=== PATIENT | female | born 1935 | race Caucasian/White ===

== ENCOUNTER 2016-07-28 18:30 | Inpatient (IN) | payer OTHER ==
[~2016-07-28] VITALS: Ht 162.6 cm; Wt 90.7 kg
[2016-07-28 18:50] LABS: HEMOGLOBIN 12.9 gm/dl (12.3-15.3); RED BLOOD COUNT 4.73 M/UL (4.00-5.10); WHITE BLOOD COUNT 8.1 K/UL (4.5-11.0)
[2016-07-29 07:48] LABS: HEMOGLOBIN 11.4 gm/dl (12.3-15.3); WHITE BLOOD COUNT 7.8 K/UL (4.5-11.0)
[2016-07-29 07:50] LABS: RED BLOOD COUNT 4.13 M/UL (4.00-5.10)
[2016-07-29] MEDS ORDERED: ELAVIL 25 MG TA25 MG PO (18:57)
[2016-07-29] MEDS ORDERED: ALPRAZOLAM0.5 MG PO (18:57)
[2016-07-29] MEDS ORDERED: LASIX40 MG PO (18:57)
[2016-07-29] MEDS ORDERED: SYNTHROID75 MCG PO (18:58)
[2016-07-29] MEDS ORDERED: DIABETA 5 MG TAB5 MG PO (18:58)
[2016-07-29] MEDS ORDERED: NITROGLYCERIN2.5 M1 PO (18:58)
[2016-07-29] MEDS ORDERED: MULTIVITAMINS1 EAC2 PO (18:59)
[2016-07-29] MEDS ORDERED: PROTONIX40 MG PO (18:59)
[2016-07-29] MEDS ORDERED: LOPRESSOR 25 MG25 MG PO (18:59)
[2016-07-29] MEDS ORDERED: CALCIUM 500 +1 EAC2 PO (19:00)
[2016-07-29] MEDS ORDERED: ASPIRIN81 MG PO (19:00)
[2016-07-29] MEDS ORDERED: PLAVIX 75 MG TA75 MG PO (19:01)
[2016-07-29] MEDS ORDERED: ANTIVERT 25MG T25 MG PO (19:01)
[2016-07-29] MEDS ORDERED: FERROUS SULFAT325 MG PO (19:01)
[2016-07-29] MEDS ORDERED: ZOCOR40 MG PO (19:01)
[2016-07-29] MEDS ORDERED: ARICEPT10 MG PO (19:01)
[2016-07-29] MEDS ORDERED: LEVEMIR100 UNIT/1 SQ (19:02)
[2016-07-29] MEDS ORDERED: CELEXA10 MG PO (19:02)
[2016-07-30 06:11] LABS: HEMOGLOBIN 10.4 gm/dl (12.3-15.3); RED BLOOD COUNT 3.87 M/UL (4.00-5.10); WHITE BLOOD COUNT 7.9 K/UL (4.5-11.0)
[2016-07-31 05:35] LABS: HEMOGLOBIN 9.4 gm/dl (12.3-15.3); RED BLOOD COUNT 3.46 M/UL (4.00-5.10); WHITE BLOOD COUNT 6.1 K/UL (4.5-11.0)
[2016-08-01 05:55] LABS: HEMOGLOBIN 10.7 gm/dl (12.3-15.3)
[2016-08-01 05:59] LABS: RED BLOOD COUNT 3.9 M/UL (4.00-5.10); WHITE BLOOD COUNT 7.9 K/UL (4.5-11.0)
[2016-08-02 05:38] LABS: HEMOGLOBIN 9.2 gm/dl (12.3-15.3)
[2016-08-02 05:40] LABS: RED BLOOD COUNT 3.4 M/UL (4.00-5.10)
== END 2016-08-02 18:20 | DRG 493 ==
LOC: ER1 18:30 → ZEROF 21:00 → M/S 21:00
PROVIDERS: Emergency Medicine; Family Medicine; Orthopaedic Surgery; ADMIT Family Medicine
PROC: 0QSJ35Z Reposition Right Fibula with External Fixation Device, Percutaneous Approach (ICD-10-PCS; principal; 2016-07-30 12:30)
DX: S82.851A Displaced trimalleolar fracture of right lower leg, initial encounter for closed fracture (principal); S42.292A Other displaced fracture of upper end of left humerus, initial encounter for closed fracture; N17.9 Acute kidney failure, unspecified; N39.0 Urinary tract infection, site not specified; D62 Acute posthemorrhagic anemia; B96.20 Unspecified Escherichia coli [E. coli] as the cause of diseases classified elsewhere; K59.00 Constipation, unspecified; J45.909 Unspecified asthma, uncomplicated; I48.91 Unspecified atrial fibrillation; I25.10 Atherosclerotic heart disease of native coronary artery without angina pectoris; Z95.1 Presence of aortocoronary bypass graft; I12.9 Hypertensive chronic kidney disease with stage 1 through stage 4 chronic kidney disease, or unspecified chronic kidney disease; E78.5 Hyperlipidemia, unspecified; I48.2 Chronic atrial fibrillation; Z86.73 Personal history of transient ischemic attack (TIA), and cerebral infarction without residual deficits; E11.22 Type 2 diabetes mellitus with diabetic chronic kidney disease; N18.3 Chronic kidney disease, stage 3 (moderate); F03.90 Unspecified dementia, unspecified severity, without behavioral disturbance, psychotic disturbance, mood disturbance, and anxiety; K21.9 Gastro-esophageal reflux disease without esophagitis; F41.9 Anxiety disorder, unspecified; F32.9 Major depressive disorder, single episode, unspecified; E66.9 Obesity, unspecified; Z68.35 Body mass index [BMI] 35.0-35.9, adult; Z96.641 Presence of right artificial hip joint; Z98.84 Bariatric surgery status; Z82.49 Family history of ischemic heart disease and other diseases of the circulatory system; Z83.3 Family history of diabetes mellitus; Z87.891 Personal history of nicotine dependence; Z88.5 Allergy status to narcotic agent; Z79.899 Other long term (current) drug therapy; Z79.84 Long term (current) use of oral hypoglycemic drugs; Z79.82 Long term (current) use of aspirin; Z79.02 Long term (current) use of antithrombotics/antiplatelets; E03.9 Hypothyroidism, unspecified
CPT/HCPCS: 36415; 71010; 73030; 73560; 73590; 73600; 76000; 80048; 80053; 81001; 82962; 85025; 85027; 85610; 85730; 87077; 87086; 87186; 93005; 94640; 94664; 94760; 94770; 96374; 96375; 97110; 97530; 99291; C1713; J0690; J1650; J1815; J1817; J2270; J2370; J2405; J3010; J7030; J7040; J7120; P9045

== ENCOUNTER 2016-08-10 10:40 | Day surgery (SDC) | payer OTHER ==
[~2016-08-10] VITALS: Ht 162.6 cm; Wt 96.2 kg
[~2016-08-10 10:40] MED LIST: ALPRAZOLAM0.5 MG PO; ANTIVERT 25MG T25 MG PO; ARICEPT10 MG PO; ASPIRIN81 MG PO; CALCIUM 500 +1 EAC2 PO; CELEXA10 MG PO; DIABETA 5 MG TAB5 MG PO; ELAVIL 25 MG TA25 MG PO; FERROUS SULFAT325 MG PO; LASIX40 MG PO; LEVEMIR100 UNIT/1 SQ; LOPRESSOR 25 MG25 MG PO; MULTIVITAMINS1 EAC2 PO; NITROGLYCERIN2.5 M1 PO; PLAVIX 75 MG TA75 MG PO; PROTONIX40 MG PO; SYNTHROID75 MCG PO; ZOCOR40 MG PO
[2016-08-10 11:15] LABS: HEMOGLOBIN 10.2 gm/dl (12.3-15.3); RED BLOOD COUNT 3.82 M/UL (4.00-5.10); WHITE BLOOD COUNT 6.1 K/UL (4.5-11.0)
[2016-08-10 11:34] LABS: BUN/CREATININE RATIO 33 (0-10)
[2016-08-10] MEDS ORDERED: LOVENOX SY40 MG/0.4 SQ (12:30)
[2016-08-10] MEDS ORDERED: MIRALAX PACK 171 PKT PO (12:31)
[2016-08-10] MEDS ORDERED: METOCLOPRAMIDE H5 MG PO (12:32)
[2016-08-10] MEDS ORDERED: COLACE 100MG C100 MG PO (12:32)
[2016-08-10] MEDS ORDERED: CEFUROXIME250 MG PO (12:33)
[2016-08-10] MEDS ORDERED: LORTAB 5-325 M1 EACH PO (12:34)
[2016-08-10] MEDS ORDERED: MINERAL OIL PO (12:35)
[2016-08-10] MEDS ORDERED: IPRAT-ALBUT 0.5-3 ML INH (12:36)
[2016-08-10] MEDS ORDERED: PROVENTIL HFA 61 INH INH (12:37)
[2016-08-10] MEDS ORDERED: DULCOLAX10 MG PR (12:38)
[2016-08-10] MEDS ORDERED: TYLENOL 325MG325 MG PO (12:39)
[2016-08-11 04:40] LABS: HEMOGLOBIN 9.4 gm/dl (12.3-15.3); RED BLOOD COUNT 3.55 M/UL (4.00-5.10); WHITE BLOOD COUNT 7.3 K/UL (4.5-11.0)
== END 2016-08-11 21:54 | disposition home or self-care (01) ==
LOC: OR 10:40 → M/S 16:30 → OR 19:57 → M/S 19:58 → OR 08-11 21:54 → M/S 08-11 21:54
PROVIDERS: Orthopaedic Surgery
PROC: 0QSG04Z Reposition Right Tibia with Internal Fixation Device, Open Approach (ICD-10-PCS; 2016-08-10)
PROC: 0SPFX5Z Removal of External Fixation Device from Right Ankle Joint, External Approach (ICD-10-PCS; principal; 2016-08-10 11:30)
PROC: 0QSJ04Z Reposition Right Fibula with Internal Fixation Device, Open Approach (ICD-10-PCS; 2016-08-10 11:30)
DX: S82.851A Displaced trimalleolar fracture of right lower leg, initial encounter for closed fracture (principal); E11.22 Type 2 diabetes mellitus with diabetic chronic kidney disease; I13.0 Hypertensive heart and chronic kidney disease with heart failure and stage 1 through stage 4 chronic kidney disease, or unspecified chronic kidney disease; N18.9 Chronic kidney disease, unspecified; I50.9 Heart failure, unspecified; I25.10 Atherosclerotic heart disease of native coronary artery without angina pectoris; J45.909 Unspecified asthma, uncomplicated; K21.9 Gastro-esophageal reflux disease without esophagitis; M19.90 Unspecified osteoarthritis, unspecified site; F32.9 Major depressive disorder, single episode, unspecified; Z87.891 Personal history of nicotine dependence; Z88.5 Allergy status to narcotic agent; Z79.02 Long term (current) use of antithrombotics/antiplatelets; Z79.51 Long term (current) use of inhaled steroids; Z79.891 Long term (current) use of opiate analgesic; Z79.899 Other long term (current) drug therapy; Z90.49 Acquired absence of other specified parts of digestive tract; Z96.641 Presence of right artificial hip joint; Z98.84 Bariatric surgery status; Z98.890 Other specified postprocedural states
CPT/HCPCS: 36415; 73610; 76000; 80048; 82962; 83036; 85025; 85027; C1713; C1776; G0378; J0690; J1650; J2250; J2270; J2795; J3010; J7030; J7050; J7120